=== PATIENT | female | born 1950 | race Caucasian/White ===

== ENCOUNTER 2016-05-13 16:18 | Emergency (ER) | payer MEDICARE ==
--- NOTE | 2016-05-15 16:02 | ER ---
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 She was coming down the stairs to go to where she works, which is the basement of the building, when she slid down, that was about 5 steps, injuring her left knee and left ankle and she has had a left abrasion on her elbow. She tried to stop herself as she was going 5 steps down. She denies any other injury. REVIEW OF SYSTEMS: Otherwise negative. She does have a little bit of swelling in the ankle and in the left knee some abrasion as well as the elbow, but able to move everything without any difficulty. She states she walked in, although a little slow. Her ankle looks a little bit more swollen than her knee. She had surgery in her right knee and has had vaginal delivery. PAST MEDICAL HISTORY: Negative. PHYSICAL EXAMINATION: VITAL SIGNS: Within normal limits, although blood pressure is slightly elevated at 161/74. On examination, little abrasion on the left elbow, but she is able to have complete range of motion to that elbow. NEUROPSYCH: Oriented x4. EXTREMITIES: Tenderness in the left knee and swelling in the lateral malleolus. Pulses good and intact. CLINICAL IMPRESSION: Left elbow abrasion, sprain left knee and left ankle. PLAN: Motrin and ANIKA wrap for the ankle and a knee immobilizer for the knee. No x-rays were done at this time. Instructions, see T-sheet. BALAJI Velasco / Stephon Linder MD / jj JOB #: [id number] CC: Stephon Linder MD, Attending Physician Eamon Scott MD, Family Physician
== END 2016-05-13 17:35 | disposition home or self-care (01) ==
LOC: ER 16:18
DX: S83.92XA Sprain of unspecified site of left knee, initial encounter (principal); S93.402A Sprain of unspecified ligament of left ankle, initial encounter; S50.312A Abrasion of left elbow, initial encounter; W10.9XXA Fall (on) (from) unspecified stairs and steps, initial encounter; Y92.69 Other specified industrial and construction area as the place of occurrence of the external cause